=== PATIENT | female | born 1965 | race Caucasian/White ===

== ENCOUNTER 2017-01-06 17:26 | Inpatient (IN) | payer MEDICAID ==
[~2017-01-06] VITALS: Ht 157.5 cm; Wt 62.6 kg
[2017-01-06] MEDS ORDERED: HUMALOG100 U/ML SC (17:54)
[2017-01-06] MEDS ORDERED: ZESTRIL5 MG PO (17:54)
[2017-01-06] MEDS ORDERED: ASPIR 8181 MG PO (17:54)
[2017-01-06 18:16] LABS: microscopic required? NO
[2017-01-06 18:18] LABS: BASOPHIL % 0.5 % (0-2); PLATELET COUNT 236 x10^3mcL (130-400); RED CELL DISTRIBUTION WIDTH 13.2 % (11.5-14.5)
[2017-01-06 18:28] LABS: BILIRUBIN TOTAL 0.43 mg/dL (0.20-1.00); CALCIUM 8.4 mg/dL (8.5-10.1); CARBON DIOXIDE 26.9 mmol/L (21-32); CREATININE SERUM 1.1 mg/dL (0.6-1.0); POTASSIUM SERUM 4.4 mmol/L (3.5-5.1); TOTAL PROTEIN, SERUM 6.6 g/dL (6.4-8.2)
[2017-01-06 18:35] LABS: UA SPECIFIC GRAVITY <=1.005 (1.005-1.035); urine erythrocyte NEGATIVE (NEGATIVE)
[2017-01-06 18:35] LABS: ALBUMIN 3.1 g/dL (3.4-5.0)
[2017-01-06 19:56] VITALS: BP 154/92
[2017-01-06 19:58] LABS: MAGNESIUM 1.6 mg/dL (1.8-2.4)
[2017-01-06 20:06] LABS: FREE T4 0.57 ng/dL (0.76-1.46)
[2017-01-06 20:08] LABS: FREE THYROXINE INDEX 0.9 ug/dL (1.4-4.5); T4(THYROXINE) 2.8 ug/dL (4.7-13.3)
[2017-01-06 20:15] VITALS: BP 154/92
[2017-01-06 20:21] LABS: T3 TOTAL 1.18 ng/mL
[2017-01-06 21:40] LABS: CALCIUM 8.1 mg/dL (8.5-10.1); CARBON DIOXIDE 27.7 mmol/L (21-32); CHLORIDE SERUM 106 mmol/L (98-107); CREATININE SERUM 0.7 mg/dL (0.6-1.0); GFR1 > 60 mL/min; GLUCOSE SERUM 220 mg/dL (74-106); SODIUM SERUM 141 mmol/L (136-145)
[2017-01-07 05:50] VITALS: BP 138/76
[2017-01-07 06:15] LABS: CALCIUM 7.9 mg/dL (8.5-10.1); CARBON DIOXIDE 24.1 mmol/L (21-32); CHLORIDE SERUM 109 mmol/L (98-107); CREATININE SERUM 0.5 mg/dL (0.6-1.0); GFR1 > 60 mL/min; GLUCOSE SERUM 228 mg/dL (74-106); MAGNESIUM 2.8 mg/dL (1.8-2.4); SODIUM SERUM 142 mmol/L (136-145)
[2017-01-07 06:23] LABS: ALBUMIN 2.2 g/dL (3.4-5.0)
[2017-01-07 07:10] LABS: BASOPHIL % 0.5 % (0-2); PLATELET COUNT 200 x10^3mcL (130-400); RED CELL DISTRIBUTION WIDTH 13.3 % (11.5-14.5)
[2017-01-07 09:20] VITALS: BP 152/89
[2017-01-07 12:53] VITALS: BP 143/85
[2017-01-07 21:09] VITALS: BP 147/66
[2017-01-08 05:44] VITALS: BP 153/81
[2017-01-08 06:20] LABS: CALCIUM 8.2 mg/dL (8.5-10.1); CARBON DIOXIDE 26.1 mmol/L (21-32); CHLORIDE SERUM 108 mmol/L (98-107); CREATININE SERUM 0.5 mg/dL (0.6-1.0); GFR1 > 60 mL/min; GLUCOSE SERUM 316 mg/dL (74-106); POTASSIUM SERUM 4.5 mmol/L (3.5-5.1); SODIUM SERUM 143 mmol/L (136-145)
[2017-01-08 06:21] LABS: BASOPHIL % 0.4 % (0-2); PLATELET COUNT 184 x10^3mcL (130-400); RED CELL DISTRIBUTION WIDTH 13.5 % (11.5-14.5)
[2017-01-08 09:17] VITALS: BP 139/78
[2017-01-08] MEDS ORDERED: MOT600 PO (13:13)
[2017-01-08] MEDS ORDERED: ESGIC CAPSULE1 EACH PO (13:26)
[2017-01-08 13:41] VITALS: BP 146/80
[2017-01-08 13:47] VITALS: BP 146/80
== END 2017-01-08 15:50 | disposition home or self-care (01) | DRG 420 ==
LOC: ED 17:26 → DU 18:45
PROVIDERS: Emergency Medicine; Family Medicine; ADMIT Family Medicine
DX: E11.65 Type 2 diabetes mellitus with hyperglycemia (principal); E11.00 Type 2 diabetes mellitus with hyperosmolarity without nonketotic hyperglycemic-hyperosmolar coma (NKHHC); D68.69 Other thrombophilia; E87.2 Acidosis; E44.0 Moderate protein-calorie malnutrition; E83.51 Hypocalcemia; E83.42 Hypomagnesemia; G44.209 Tension-type headache, unspecified, not intractable; E87.1 Hypo-osmolality and hyponatremia; I10 Essential (primary) hypertension; E05.90 Thyrotoxicosis, unspecified without thyrotoxic crisis or storm; Z68.26 Body mass index [BMI] 26.0-26.9, adult; Z96.41 Presence of insulin pump (external) (internal); Z79.82 Long term (current) use of aspirin
CPT/HCPCS: 80307; 82962; 83880; 84439; J0696; J1815; J2405; J3010; J3475; J7030; Q0092